=== PATIENT | male | born 1945 | race Caucasian/White ===

== ENCOUNTER → 2019-11-04 | Outpatient (CLI) | payer BC, MEDICARE, OTHER ==
[2016-01-09 15:01] VITALS: BP 162/63
[~2019-11-04] MED LIST: ACET-704 PO; ASPI-630 PO; CETI10CA PO; CHOL10003 PO; FLUT1DIS IH; OMEP20CA5 PO; PROP150T PO; REGADENOSON 0.4 MG/5 ML DISP.SYRIN. IV ONE; SIMV20TA18 PO; VENTOLIN HFA18 GM IH; ZOLP5TAB PO
--- NOTE | 2019-11-04 16:25 | RAD ---
MR#: [id number] Date of Study: 11/04/2019 Ordering Physician: PAUL GENAO, Referring Physician: ANEL SUMMERS Tech: Sujatha Tom NMTCB, ARRT (R) (N) APPROVED REPORT Test Type: Pharmacological Stress Nurse/Tech: Lisa De Leon R.N. Test Indications: GUAN Cardiac History: Afib? Medications: See Electronic Medical Record Medical History: See Electronic Medical Record Resting ECG: SR Resting Heart Rate: 67 bpm Resting Blood Pressure: 146/69mmHg Pretest Chest Pain: No chest pain Nurse/Tech Notes S1S2, lungs CTA but deminished in bases Consent: The procedure was explained to the patient in lay terms. Informed consent was witnessed. Jeison eout was entered into [employer]. History and Stress Test performed by JERAD Tom Pharm. Details Pharmacologic stress testing was performed using 0.4mg per 5ml of regadenoson given intravenously ove r 7-10 seconds. Stress Symptoms SOA, chest burning for about 1 minutes after lexiscan given and then it was gone POST EXERCISE Reason for Termination: Infusion complete Max HR: 87 bpm Max Blood Pressure: 158/58mmHg Blood Pressure response to exercise: Normal blood pressure response during stress. Heart Rate response to exercise: wnl Chest Pain: Yes. see above note Arrhythmia: No. ST Change: No. INTERPRETATION Stress EKG Conclusion: No evidence of stress induced EKG changes. Imaging Protocol IMAGE PROTOCOL: Rest Tc-99m/stress Tc-99m 1 day Rest: Stress: Viability: Radiopharm.Tc99m PbujaqmnvAh86h Sestamibi Vnwo24bIr 33mCi Duration 15min. 10min. Img Date 11/04/2019 11/04/2019 Inj-Img Hqmr86zmb. 60min. Rest Admin Site:IV - Right HandAdministrator: JERAD Tom Stress Admin Site: IV - Right HandAdministrator: SEAN Hebert, ARRT (R)(N) STRESS DATA End Diast. Vol.87.0mlAv. Heart Rate83.0bpm End Syst. Vol.26.0mlCO Index BSA0.0L/min Myocardial Oxob452.0gEject. Jvuajpzt96.0% Stress Rates Pk. Fill Rate3.07EDV/secLVtime Pk. Fill 175.53msec Pk. Empty Rate4.41ESV/secLVtime Pk. Fqrcr389.18msec 1/3 Pk. Fill0.82EDV/sec Stress Scores Regional WT0.00Summed WT5.00 Regional WM0.00Summed WM0.00 The rest and stress images show normal perfusion, normal contraction and thickening. LV Perf. Quant 17 Seg. SSS1.00 17 Seg. SRS1.00 17 Seg. SDS1.00 Stress Defect Extent (% LAD)0.00Rest Defect Extent (% LAD)1.30Rev. Defect Extent (% LAD)0.00 Stress Defect Extent (% LCX) 2.50Rest Defect Extent (% LCX)7.50Rev. Defect Extent (% LCX)0.00 Stress Defect Extent (% RCA)0.00Rest Defect Extent (% RCA)0.00Rev. Defect Extent (% RCA)0.00 Stress Defect Extent (% BUSTER)1.30Rest Defect Extent (% BUSTER)2.20Rev. Defect Extent (% BUSTER)0.70 Other Information Quality:Average Risk Assessment: Low Risk Conclusion 1. No evidence of EKG changes with stress testing. 2. Normal perfusion at stress/rest. 3. Low risk study. 4. EF > 60%. Signed by : Alvino Pierre, Electronically Approved : 11/04/2019 16:25:01
== END | disposition home or self-care (01) ==
LOC: NM 07:58
PROVIDERS: ATTEND Family Medicine
DX: R06.02 Shortness of breath (principal)
CPT/HCPCS: 78452; 93017; A9500; J2785